=== PATIENT | male | born 1960 | race African-American/Black ===

== ENCOUNTER 2023-12-10 08:19 | Emergency (ER) | payer BC ==
[~2023-12-10] VITALS: Ht 175.3 cm; Wt 104.5 kg
[2023-12-10 08:23] VITALS: TEMP 97.9
[2023-12-10 09:08] LABS: URINE APPEARANCE Clear (CLEAR/HAZY); URINE BLOOD TRACE-LYSED (NEGATIVE); URINE COLOR Yellow (YELLOW); URINE GLUCOSE Negative (NEGATIVE); URINE KETONE Negative (NEGATIVE); URINE NITRATE Negative (NEGATIVE); URINE PROTEIN(semi-quant) Negative (NEGATIVE)
[2023-12-10 09:09] LABS: COLLECTION METHOD CLEAN CATCH
[2023-12-10 09:21] VITALS: BP 144/88; PULSE 84
== END 2023-12-10 09:47 | disposition home or self-care (01) ==
LOC: COL.ER 08:19
PROVIDERS: Emergency Medicine
DX: R33.9 Retention of urine, unspecified (principal)
CPT/HCPCS: 31860; A4314

== ENCOUNTER 2023-12-12 20:46 | Emergency (ER) | payer BC ==
[~2023-12-12] VITALS: Ht 175.3 cm; Wt 104.5 kg
[2023-12-12 20:55] VITALS: TEMP 98.3
[2023-12-12 21:37] LABS: COLLECTION METHOD CATHETER
[2023-12-12 21:43] LABS: PH 5.5 (5.0-8.5); URINE APPEARANCE Hazy (CLEAR/HAZY); URINE COLOR YELLOW (YELLOW); URINE GLUCOSE NEGATIVE (NEGATIVE); URINE KETONE NEGATIVE (NEGATIVE); URINE PROTEIN(semi-quant) 2+ (BEGATIVE)
[2023-12-12 21:44] LABS: URINE BLOOD 3+ (NEGATIVE); URINE NITRATE NEGATIVE (NEGATIVE)
[2023-12-12 22:15] VITALS: BP 154/87; PULSE 85
[2023-12-12] MEDS ORDERED: CEPHALEXIN500 M1 PO (22:43)
== END 2023-12-12 22:15 | disposition home or self-care (01) ==
LOC: COL.ER 20:46
PROVIDERS: Emergency Medicine
DX: T83.098A Other mechanical complication of other urinary catheter, initial encounter (principal); T81.31XA Disruption of external operation (surgical) wound, not elsewhere classified, initial encounter; N39.0 Urinary tract infection, site not specified

== ENCOUNTER 2023-12-17 20:01 | Emergency (ER) | payer BC ==
[~2023-12-17] VITALS: Ht 175.3 cm; Wt 113.6 kg
[~2023-12-17 20:01] MED LIST: CEPHALEXIN500 M1 PO
[2023-12-17 20:04] VITALS: TEMP 98.2
[2023-12-17 20:55] LABS: COLLECTION METHOD CATHETER
[2023-12-17 21:01] LABS: URINE APPEARANCE Clear (CLEAR/HAZY); URINE COLOR YELLOW (YELLOW)
[2023-12-17 21:02] LABS: PH 5.5 (5.0-8.5); URINE BLOOD 2+ (NEGATIVE); URINE GLUCOSE TRACE (NEGATIVE); URINE KETONE 1+ (NEGATIVE); URINE NITRATE Positive (NEGATIVE); URINE PROTEIN(semi-quant) 3+ (NEGATIVE)
[2023-12-17 21:15] LABS: ALBUMIN 3.2 g/dL (3.4-4.8); C-REACTIVE PROTEIN 3.08 mg/dL (0.00-0.50); CALCIUM 9.2 mg/dL (8.4-10.2); CREATININE, serum 1.35 mg/dL (0.72-1.25); POTASSIUM 3.4 mEq/L (3.5-4.5); TOTAL PROTEIN 6.7 g/dl (6.2-8.1)
[2023-12-17 21:24] LABS: BASO # 0.1 K/mm3 (0.0-0.2); BASO % 0.8 % (0.0-2.0); EOS # 0.4 K/mm3 (0.0-0.7); EOS % 4.4 % (0.0-4.0); GRAN % 55.5 % (42.2-75.2); HEMOGLOBIN 11.8 g/dl (13.5-18.0); LYMPH # 2.5 K/mm3 (1.2-3.4); LYMPH % 27.9 % (20.0-51.0); MEAN CELL VOLUME 86 fl (80.0-100.0); MEAN CORPUSCULAR HEMOGLOBIN 32 pg (27-31); MEAN CORPUSCULAR HGB CONC 38 g/dl (33.0-37.0); MEAN PLATELET VOLUME 9.9 fl (7.4-10.4); MONO % 10.8 % (1.7-9.3); RED BLOOD COUNT 3.66 M/mm3 (4.20-5.60); REDCELL DISTRIBUTION WIDTH-CV 13.1 % (11.5-14.5)
[2023-12-17 21:25] LABS: HEMATOCRIT 31.3 % (42.0-52.0)
[2023-12-17 21:50] LABS: PLATELET COUNT 420 K/mm3 (130-400)
[2023-12-17] MEDS ORDERED: NS 50 ML IV SCH (22:11)
[2023-12-17] MEDS ORDERED: Iohexol 300 - 100 ML VIAL IV ONE (22:11)
[2023-12-17] MEDS ORDERED: Docusate Sodium 100 MG CAP PO ONE (23:45)
[2023-12-17] MEDS ORDERED: Acetaminophen 500 MG TAB PO ONE (23:45)
[2023-12-17] MEDS ORDERED: cefTRIAXone 1 G in Water For Injection,Sterile 10 ML IV ONE (23:45)
[2023-12-18 00:22] VITALS: BP 168/96; PULSE 88
== END 2023-12-18 00:29 | disposition home or self-care (01) ==
LOC: COL.ER 20:01
PROVIDERS: Nurse Practitioner
DX: N39.0 Urinary tract infection, site not specified (principal); N50.89 Other specified disorders of the male genital organs; F17.200 Nicotine dependence, unspecified, uncomplicated
CPT/HCPCS: J0696; Q9967

== ENCOUNTER 2024-04-10 18:13 | Emergency (ER) | payer OTHER ==
[~2024-04-10] VITALS: Ht 175.3 cm; Wt 101.8 kg
[2024-04-10 18:22] VITALS: TEMP 99.8
[2024-04-10] MEDS ORDERED: Albuterol/Ipratropium 3 MG-0.5 MG/3 ML Neb Soln IH ONE ×2 (18:30→19:15)
[2024-04-10] MEDS ORDERED: Magnesium Sulfate 4% 50 ML IV ONE (19:15)
[2024-04-10] MEDS ORDERED: cloNIDine 0.1 MG TAB PO ONE (19:15)
[2024-04-10] MEDS ORDERED: methylPREDNISolone Sod Succ 125 MG/2 ML VIAL IV ONE (19:15)
[2024-04-10 20:06] LABS: INR 1.5 (0.8-3.0); PROTHROMBIN TIME 15.6 SECONDS (9.7-12.8)
[2024-04-10 20:23] LABS: ALBUMIN 3.9 g/dL (3.4-4.8); BILIRUBIN,TOTAL 1.9 mg/dL (0.2-1.2); CALCIUM 9.1 mg/dL (8.4-10.2); CREATININE, serum 1.04 mg/dL (0.72-1.25); POTASSIUM 3.3 mEq/L (3.5-4.5); TOTAL PROTEIN 8.5 g/dl (6.2-8.1)
[2024-04-10 20:29] LABS: TROPONIN-I 0.017 ng/mL (0.00-0.033)
[2024-04-10] MEDS ORDERED: PREDNISONE10 MG PO (20:43)
[2024-04-10] MEDS ORDERED: Albuterol 90 MCG/PUFF 8 GM MDI IH ONE (20:45)
[2024-04-10 20:55] LABS: HEMATOCRIT 43.3 % (42.0-52.0); MEAN CELL VOLUME 90 fl (80.0-100.0); MEAN CORPUSCULAR HEMOGLOBIN 34 pg (27-31); MEAN CORPUSCULAR HGB CONC 37 g/dl (33.0-37.0); PLATELET COUNT 320 K/mm3 (130-400); REDCELL DISTRIBUTION WIDTH-CV 14.1 % (11.5-14.5)
[2024-04-10 20:59] LABS: HEMOGLOBIN 16.2 g/dl (13.5-18.0)
[2024-04-10] MEDS ORDERED: IPRATROPIUM BROM3 M1 IH (21:07)
[2024-04-10 21:14] LABS: BAND 1 % (0-10); EOSINOPHIL 1 % (0-4); LYMPHOCYTE 21 % (20.0-51.0); NEUTROPHILS 66 % (42.0-75.2); PLATELET ESTIMATE NORMAL (NORMAL)
[2024-04-10 21:16] LABS: ANISOCYTOSIS 1+
[2024-04-10 21:20] VITALS: BP 140/98; PULSE 89
[2024-04-19] MEDS ORDERED: FLOMAX 0.40.4 MG/CAP PO (16:41)
[2024-04-19] MEDS ORDERED: K-DUR20 MEQ PO (16:42)
[2024-04-21] MEDS ORDERED: AMOXICILLIN 8751 TAB PO (16:04)
[2024-04-21] MEDS ORDERED: DOXYCYCLINE HY100 MG PO (16:04)
[2024-04-21] MEDS ORDERED: PREDNISONE50 MG PO (16:04)
== END 2024-04-10 21:20 | disposition home or self-care (01) ==
LOC: COL.ER 18:13
PROVIDERS: Family Medicine
DX: J45.901 Unspecified asthma with (acute) exacerbation (principal)
CPT/HCPCS: J2919; J3475